=== PATIENT | female | born 2000 | race Two or more races ===

== ENCOUNTER 2021-02-10 15:14 | Outpatient (REF) | payer OTHER, SELFPAY ==
[2021-02-12 11:23] LABS: BV Int Neg Control Negative (Negative); BV Int Pos Control Positive (Positive)
[2021-02-12 12:05] LABS: CT PCR NOT DETECTED (Not Detect.); NG PCR NOT DETECTED (Not Detect.)
== END 2021-02-10 15:15 | disposition home or self-care (01) ==
LOC: HO.LAB 15:14
PROVIDERS: Visit Provider Nurse Practitioner Family
DX: N89.8 Other specified noninflammatory disorders of vagina (principal)
CPT/HCPCS: 87480; 87491; 87510; 87591; 87660

== ENCOUNTER 2021-02-12 09:27 | Outpatient (REF) | payer OTHER, SELFPAY | END 2021-02-12 09:28 | disposition home or self-care (01) | LOC: HO.LAB 09:27 | PROVIDERS: Visit Provider Nurse Practitioner Family | DX: R30.0 Dysuria (principal) | CPT/HCPCS: 87086 ==

== ENCOUNTER → 2021-02-13 13:25 | Outpatient (BNVA) | payer OTHER, SELFPAY | PROVIDERS: Visit Provider Nurse Practitioner Psychiatric/Mental Health | DX: F10.20 Alcohol dependence, uncomplicated (principal) | CPT/HCPCS: 80305 ==

== ENCOUNTER 2021-02-14 09:47 | Outpatient (REF) | payer OTHER, SELFPAY ==
[2021-02-14 11:22] LABS: MANUAL DIFF FLAG NO
[2021-02-14 11:43] LABS: Basophils Absolute Auto 0.1 X10*3/uL (0.0-0.2); Basophils Percent Auto 0.6 % (0-2); Eosinophils Absolute Auto 0.2 X10*3/uL (0.0-0.4); Eosinophils Percent Auto 2.8 % (0-4); Hematocrit 38.9 % (37-47); Hemoglobin 12.2 g/dl (12.0-16.0); Imm Gran Abs Auto 0.03 X10*3/uL (0.00-0.03); Imm Gran Pct Auto 0.4 % (0.0-0.4); Lymphocytes Percent Auto 23.6 % (20-40); Mean Corpuscular HGB Conc 31.4 g/dl (31.0-35.0); Mean Corpuscular Hemoglobin 27.4 pg (27.0-33.0); Mean Corpuscular Volume 87.2 fL (80-98); Monocytes Absolute Auto 0.9 X10*3/uL (0.1-1.2); Monocytes Percent Auto 10.8 % (2-11); Neutrophils Absolute Auto 5.2 X10*3/uL (2.0-8.3); Neutrophils Percent Auto 61.8 % (45-73); Platelet Count 356 X10*3/uL (160-400); Red Blood Count 4.46 X10*6/uL (4.20-5.50); Red Cell Distribution Width 12.9 % (11.0-16.0); White Blood Count 8.5 X10*3/uL (4.8-10.8)
[2021-02-14 12:26] LABS: Syphilis Screen Nonreactive (Nonreactive)
[2021-02-14 12:38] LABS: HBS Num1 0.49 mIU/mL (0-7.99); HBc Num1 0.12 S/CO (0.00-0.79); HIV AB/AG Nonreactive (Nonreactive); HIV Num 1 0.04 S/CO (0.00-0.99); Hepatitis A Antibody IgM 0.15 Index (0-0.79); Hepatitis B Core Antibody Nonreactive (Nonreactive); ~HepC Num1 0.43 S/CO (0.00-0.79); ~Hepatitis A Antibody IgM Nonreactive (Nonreactive); ~Hepatitis B Surface Antibody NONREACTIVE (Nonreactive); ~Hepatitis C Antibody Nonreactive (Nonreactive)
[2021-02-14 13:00] LABS: Hepatitis B Surface Antigen Negative (Negative)
[2021-02-14 13:14] LABS: Alanine Aminotransferase 46 U/L (0-31); Albumin Level 4.3 g/dL (3.5-5.0); Alkaline Phosphatase 84 U/L (39-117); Anion Gap 12 (12-20); Aspartate Amino Transferase 149 U/L (5-31); Bilirubin Total 0.2 mg/dL (0.0-1.0); Blood Urea Nitrogen 14 mg/dL (9-16); Carbon Dioxide 25 mmol/L (22-29); Chloride 107 mmol/L (96-108); Estimated Glomerular Filt Rate > 60; Glucose Random 89 mg/dL (60-115); Potassium 4.2 mmol/L (3.3-5.1); Sodium 140 mmol/L (135-145); Total Protein 7.2 g/dL (6.5-8.0)
[2021-02-15 07:31] LABS: LDL Cholesterol Direct 57 mg/dL (<100)
[2021-02-15 13:36] LABS: Herpes Simplex Type 2 IgG <0.90 index
== END 2021-02-14 09:48 | disposition home or self-care (01) ==
LOC: HO.HMGCLDS 09:47
PROVIDERS: PCP Internal Medicine; Visit Provider Internal Medicine
DX: Z00.01 Encounter for general adult medical examination with abnormal findings (principal); Z11.4 Encounter for screening for human immunodeficiency virus [HIV]; A64 Unspecified sexually transmitted disease; F19.20 Other psychoactive substance dependence, uncomplicated; R30.0 Dysuria
CPT/HCPCS: 36415; 80053; 83721; 85025; 86695; 86696; 86704; 86706; 86709; 86780; 86803; 87086; 87340; 87389

== ENCOUNTER 2021-02-19 10:25 | Outpatient (REF) | payer OTHER, SELFPAY ==
[2021-02-19 13:42] LABS: Alanine Aminotransferase 33 U/L (0-31); Albumin Level 4.1 g/dL (3.5-5.0); Alkaline Phosphatase 73 U/L (39-117); Aspartate Amino Transferase 25 U/L (5-31); Bilirubin Direct < 0.2 mg/dL (0.0-0.5); Bilirubin Total 0.2 mg/dL (0.0-1.0); Iron 82 mcg/dL (30-160); Percent Iron Saturation 28 % (15-50); Total Iron Binding Capacity 294 mcg/dL (228-428); Total Protein 6.6 g/dL (6.5-8.0); Unsaturated Iron Binding 212 ug/dL
[2021-02-19 14:03] LABS: Ferritin 29 ng/mL (10-122)
[2021-02-20 13:47] LABS: Anti Nuclear Antibody Screen NEGATIVE (NEGATIVE)
[2021-02-21 15:17] LABS: Mitochondrial Antibodies NEGATIVE (NEGATIVE)
[2021-02-27 10:56] LABS: Smooth Muscle Antibody <20 U (<20)
== END 2021-02-19 10:26 | disposition home or self-care (01) ==
LOC: HO.10HDL 10:25
PROVIDERS: Visit Provider Internal Medicine Gastroenterology
DX: R74.8 Abnormal levels of other serum enzymes (principal)
CPT/HCPCS: 36415; 80076; 82728; 83540; 86038; 86039; 86255; 86256

== ENCOUNTER 2021-02-20 14:51 | Outpatient (REF) | payer OTHER, SELFPAY ==
--- NOTE | ~2021-02-20 | US_ITS ---
EXAMINATION: US ABDOMEN COMPLETE CLINICAL INFORMATION: Elevated liver enzymes. COMPARISON: None TECHNIQUE: Real-time imaging of the abdominal viscera. FINDINGS: PANCREAS: Normal. ABDOMINAL AORTA: The proximal, mid, and distal segments are normal in caliber. INFERIOR VENA CAVA: Visualized portions are normal. LIVER: The liver is normal in size. The liver contour is normal. Parenchymal echogenicity is normal. No focal hepatic lesion. There is no intrahepatic biliary duct dilatation seen. GALLBLADDER: There is echogenic debris seen throughout the gallbladder when patient in decubitus view. There are no echogenic stones, wall thickening or pericholecystic fluid collection. COMMON BILE DUCT: Normal in caliber measuring 0.17 cm in diameter. RIGHT KIDNEY: Normal. No hydronephrosis. No renal calculi or focal parenchymal lesions. The kidney measures 10.8 cm in maximum dimension. LEFT KIDNEY: There is is echogenic stone in the upper pole measuring 0.2 x 0.3 x 0.2 cm. No additional echogenic stone seen. There is no caliectasis or hydronephrosis. No focal parenchymal lesions. The kidney measures 10.3 cm in maximum dimension. SPLEEN: Normal. The spleen measures 9.4 cm in maximum dimension. FREE FLUID: None. US/US abdomen complete IMPRESSION: Echogenic debris in the gallbladder but no echogenic stones or wall thickening seen. Nonobstructive echogenic stone upper pole left kidney. Rest of the abdominal ultrasound is unremarkable.
== END 2021-02-20 14:52 | disposition home or self-care (01) ==
LOC: HO.HMGCX 14:51
PROVIDERS: Visit Provider Internal Medicine Gastroenterology
DX: R74.8 Abnormal levels of other serum enzymes (principal); F10.20 Alcohol dependence, uncomplicated
CPT/HCPCS: 76700; 80305

== ENCOUNTER 2021-03-10 12:33 | Outpatient (REF) | payer OTHER, SELFPAY ==
[2021-03-10 14:47] LABS: Influenza A PCR NEGATIVE (Negative); Influenza B PCR NEGATIVE (Negative); Resp Syncy Virus RNA Qual PCR NEGATIVE (Negative); SARS COV2 PCR INHOUSE NEGATIVE (Negative)
== END 2021-03-10 12:34 | disposition home or self-care (01) ==
LOC: HO.LAB 12:33
PROVIDERS: Visit Provider Nurse Practitioner Family
DX: Z20.822 Contact with and (suspected) exposure to COVID-19 (principal)
CPT/HCPCS: 0241U; 36415; 87071

== ENCOUNTER 2021-03-20 08:00 | Outpatient (REF) | payer OTHER, SELFPAY ==
[2021-03-21 08:50] LABS: BV Int Neg Control Negative (Negative); BV Int Pos Control Positive (Positive)
[2021-03-21 09:03] LABS: CT PCR NOT DETECTED (Not Detect.); NG PCR NOT DETECTED (Not Detect.)
== END 2021-03-20 08:01 | disposition home or self-care (01) ==
LOC: HO.LAB 08:00
PROVIDERS: PCP Psychiatry & Neurology Neurology; Visit Provider Advanced Practice Midwife
DX: Z01.411 Encounter for gynecological examination (general) (routine) with abnormal findings (principal); N89.8 Other specified noninflammatory disorders of vagina; Z20.2 Contact with and (suspected) exposure to infections with a predominantly sexual mode of transmission
CPT/HCPCS: 87480; 87491; 87510; 87591; 87660; 88142

== ENCOUNTER 2021-05-26 10:41 | Outpatient (REF) | payer OTHER, SELFPAY ==
[2021-05-26 11:48] LABS: Alanine Aminotransferase 11 U/L (0-31); Albumin Level 4.3 g/dL (3.5-5.0); Alkaline Phosphatase 75 U/L (39-117); Aspartate Amino Transferase 13 U/L (5-31); Bilirubin Direct 0.2 mg/dL (0.0-0.5); Bilirubin Total 0.5 mg/dL (0.0-1.0); Total Protein 7.1 g/dL (6.5-8.0)
== END 2021-05-26 10:42 | disposition home or self-care (01) ==
LOC: HO.LAB 10:41
PROVIDERS: PCP Internal Medicine; Visit Provider Internal Medicine Gastroenterology
DX: R74.8 Abnormal levels of other serum enzymes (principal)
CPT/HCPCS: 36415; 80076

== ENCOUNTER 2021-06-08 13:46 | Emergency (ER) | payer OTHER, SELFPAY ==
--- NOTE | ~2021-06-08 | XR_ITS ---
EXAMINATION: XR FINGER, RIGHT CLINICAL INFORMATION: Thumb injury with knife. COMPARISON: None TECHNIQUE: 3 views of the right thumb.. FINDINGS: There is no visible acute fracture, dislocation subluxation. No soft tissue abrasion or radiopaque foreign body seen. There is a soft tissue bandage surrounding the distal thumb. XR/XR finger RT min 2V IMPRESSION: No underlying fracture or radiopaque foreign body. No soft tissue abrasion seen. There is a soft tissue bandage surrounding the distal thumb.
[2021-06-08 13:47] VITALS: BP 136/91; PULSE 79; RESP 17; TEMP 36.7; O2SAT 100; BMI 22.3
--- NOTE | 2021-06-08 14:38 | ED.WOUNDLAC ---
HPI - Wound/Laceration General Chief Complaint: Wound/Laceration Stated Complaint: rt thumb laceration Time Seen by Provider: 06/08/21 14:16 Source: patient Mode of arrival: ambulatory Limitations: no limitations History of Present Illness HPI narrative: 21 y/o female presents to the ER with a laceration to the middle of her right thumb that she sustained with a blade of a bank manager at 11:30am today. She reports immediate pain and a lot of bleeding when the incident happened. She went to [facility] ER for evaluation - a dressing was applied, she was given ibuprofen for pain. The wait in the ER there was several hours so she left and came to [facility] [place]. She arrives with the bandage in place, no active bleeding. She reports she is able to bend it slightly but has pain with any movement. Onset (ago): hour(s) (3) Place: home Patient tetanus UTD: No Context: accidental Associated symptoms: pain and loss of feeling/numbness Treatments prior to arrival: bandage and NSAIDS Related Data Previous Rx's Medication Instructions Recorded naltrexone 50 mg tablet 50 mg PO DAILY #30 tab 02/13/21 prazosin 1 mg capsule 1 mg PO BEDTIME #30 cap 02/13/21 azithromycin 500 mg tablet 500 mg PO DAILY 5 Days #5 tab 03/10/21 dexamethasone 6 mg tablet 6 mg PO DAILY 3 Days #3 tab 03/10/21 (Decadron) metronidazole 0.75 % vaginal gel 1 appful VAGINAL BEDTIME 5 Days 03/21/21 (Metrogel Vaginal) #70 g Allergies Allergy/AdvReac Type Severity Reaction Status Date / Time amoxicillin Allergy Unknown hives Verified 06/08/21 13:47 Review of Systems Review of Systems: Constitutional: No Fever, No Chills Gastrointestinal: No Nausea, No Vomiting Genitourinary: No Dysuria, No Urinary Frequency, No Hematuria Musculoskeletal: + joint pain, No Myalgias Skin: + Skin Lesions, No rash Neuro: No Weakness, + Numbness Psych: + Anxiety/Panic, No Depression Heme/Lymph: No Bruising PMFSH Past Medical History Medical History Alcohol use disorder Dysuria Vaginal discharge Family History Family History Paternal Grandmother Breast cancer Paternal Aunt Breast cancer, Onset Age: 40 Social History Social History Alcohol intake: former Cigarettes Per Day: 2 Advance Directives: No Advance Directives Information Provided: Yes Patient : No Gender identity: Female Physical Exam Vital Signs: Vital Signs: Last Vital Signs Temp 98.0 F 06/08/21 13:47 Pulse 79 06/08/21 13:47 Resp 17 06/08/21 13:47 BP 136/91 H 06/08/21 13:47 Pulse Ox 100 06/08/21 13:47 Body Mass Index 22.3 Appearance: Alert. Oriented X3. No acute distress. HEENT: normal inspection CVS: Normal heart rate and rhythm. Pulses normal. Respiratory: No respiratory distress. Skin: Skin warm and dry. Normal skin color. Normal skin turgor. No rashes. Extremities: right thumb with deep laceration to the palmar aspect just below the DIP. no active bleeding. laceration is slightly irregular. able to full extend and bend to 45 degrees. cap refill <3 sec. +numbness to the tip Neuro: Oriented X 3. No motor deficit. No sensory deficit. Course Course Course Narrative: 21 y/o female presenting to the ER with right thumb lac on bank manager blade. Tdap needed. XR pending. Will require repair. Reevaluation(s) Reevaluation #1: Wound closed with good effect. XR normal. Wound care discussed. Stable for d/c home with plan to return in 7-10 days for removal. Procedures Laceration Laceration 1: Site: hand Side (If applicable): right Size (cm): 2.5 Description: irregular Depth: simple, single layer Local Anesthetic: lidocaine 2% Pre-repair: wound explored, irrigated extensively and deep structures intact Skin layer closed with: nylon Size (cm): 4-0 Number of sutures: 6 Technique: simple, interrupted Nerve Block Nerve Block 1: Time out performed: Yes Local Anesthetic: lidocaine 2% Side: right Nerve Blocks: digital Procedure Successful: Yes Patient Tolerated Procedure: well Complications: none Critical Care Time Critical Care Time Critical Care Time: No Discharge Plan Discharge Clinical Impression: Laceration Patient Disposition: Home, Self-Care Instructions: Finger Laceration (ED) Additional Instructions: Your x-ray today was normal. You will need your stitches out in 7-10 days. See you doctor for this or come back to the ER and we will remove them. Do not get wet for 24 hours, after that you can briefly wash with soap and water then pat dry. Use bacitracin 2x per day. Keep wound clean and covered. Do not submerge in water, no swimming. If you develop signs of infection including increased pain, swelling, redness or drainage of pus come back to the ER for further evaluation. Prescriptions: No Action metronidazole [Metrogel Vaginal] 0.75 % gel 1 appful vaginal BEDTIME 5 Days Qty: 70 RF: 0 ceftriaxone 500 mg recon soln 500 mg IM ONCE Qty: 1 RF: 0 azithromycin 500 mg tablet 500 mg PO DAILY 5 Days Qty: 5 RF: 0 dexamethasone [Decadron] 6 mg tablet 6 mg PO DAILY 3 Days Qty: 3 RF: 0 prazosin 1 mg capsule 1 mg PO BEDTIME Qty: 30 RF: 0 naltrexone 50 mg tablet 50 mg PO DAILY Qty: 30 RF: 0 Stand Alone Forms: Work/School Release
[2021-06-08] MEDS: Diphth,Pertus(ACell),Tet Adult 0.5 ML SYRINGE IM (14:51)
[2021-06-08] MEDS: Lidocaine HCl 2 % MPF 5 ML VIAL INFILTRATI (14:53)
== END 2021-06-08 16:07 | disposition home or self-care (01) ==
PROVIDERS: Emergency Provider Emergency Medicine; PCP Internal Medicine
DX: S61.411A Laceration without foreign body of right hand, initial encounter (principal); Y28.9XXA Contact with unspecified sharp object, undetermined intent, initial encounter; Y93.9 Activity, unspecified; Y92.9 Unspecified place or not applicable; Y99.9 Unspecified external cause status
CPT/HCPCS: 12001; 73140; 90471; 90715; 96372; 99283; 99284

== ENCOUNTER 2021-06-30 08:52 | Outpatient (REF) | payer OTHER, SELFPAY ==
[2021-07-01 10:13] LABS: BV Int Neg Control Negative (Negative); BV Int Pos Control Positive (Positive)
== END 2021-06-30 08:53 | disposition home or self-care (01) ==
LOC: HO.LAB 08:52
PROVIDERS: PCP Internal Medicine; Visit Provider Advanced Practice Midwife
DX: Z30.011 Encounter for initial prescription of contraceptive pills (principal); R87.615 Unsatisfactory cytologic smear of cervix; N89.8 Other specified noninflammatory disorders of vagina
CPT/HCPCS: 87480; 87510; 87660; 88142

== ENCOUNTER → 2021-07-31 13:44 | Outpatient (BNVA) | payer OTHER, SELFPAY | PROVIDERS: PCP Internal Medicine; Referring Provider Internal Medicine; Visit Provider Surgery ==

== ENCOUNTER 2022-04-06 11:48 | Outpatient (REF) | payer OTHER, SELFPAY ==
[2022-04-06 14:01] LABS: Hematocrit 38.6 % (37.0-47.0); Hemoglobin 12.1 g/dl (12.0-16.0); Mean Corpuscular HGB Conc 31.3 g/dl (31.0-35.0); Mean Corpuscular Volume 86.2 fL (80.0-98.0); Platelet Count 340 X10*3/uL (160-400); Red Blood Count 4.48 X10*6/uL (4.20-5.50); Red Cell Distribution Width 13.2 % (11.0-16.0); White Blood Count 11.3 X10*3/uL (4.8-10.8)
[2022-04-06 14:18] LABS: Alanine Aminotransferase 9 U/L (0-31); Alkaline Phosphatase 61 U/L (39-117); Aspartate Amino Transferase 10 U/L (5-31); Bilirubin Direct < 0.2 mg/dL (0.0-0.5); Bilirubin Total < 0.2 mg/dL (0.0-1.0); Total Protein 6.6 g/dL (6.5-8.0)
[2022-04-06 14:30] LABS: T4 Thyroxine 5.3 ug/dL (4.5-12.0); Thyroid Stimulating Hormone 0.76 uIU/mL (0.32-4.0)
[2022-04-09 21:22] LABS: Transglutaminase IgA <1.0 U/mL
== END 2022-04-06 11:49 | disposition home or self-care (01) ==
LOC: HO.10HDL 11:48
PROVIDERS: Visit Provider Internal Medicine Gastroenterology
DX: R10.84 Generalized abdominal pain (principal)
CPT/HCPCS: 36415; 80076; 84436; 84443; 85027; 86364

== ENCOUNTER 2022-06-17 09:12 | Outpatient (REF) | payer OTHER, SELFPAY ==
[2022-06-17 10:34] LABS: MANUAL DIFF FLAG NO
[2022-06-17 10:50] LABS: Basophils Percent Auto 0.4 % (0-2); Eosinophils Absolute Auto 0.2 X10*3/uL (0.0-0.4); Eosinophils Percent Auto 2.1 % (0-4); Imm Gran Abs Auto 0.03 X10*3/uL (0.00-0.03); Imm Gran Pct Auto 0.4 % (0.0-0.4); Lymphocytes Absolute Auto 1.9 X10*3/uL (1.2-4.9); Lymphocytes Percent Auto 22.4 % (20-40); Mean Corpuscular HGB Conc 31.6 g/dl (31.0-35.0); Mean Corpuscular Hemoglobin 27.1 pg (27.0-33.0); Mean Platelet Volume 11.2 fL (9.4-12.3); Monocytes Absolute Auto 0.9 X10*3/uL (0.1-1.2); Monocytes Percent Auto 10.8 % (2-11); Neutrophils Absolute Auto 5.4 x10*3/uL (2.0-8.3); Neutrophils Percent Auto 63.9 % (45-73); Platelet Count 374 X10*3/uL (160-400); Red Blood Count 4.42 X10*6/uL (4.20-5.50); Red Cell Distribution Width 13.9 % (11.0-16.0); White Blood Count 8.5 X10*3/uL (4.8-10.8)
[2022-06-17 11:30] LABS: Alanine Aminotransferase 9 U/L (0-31); Albumin Level 4.2 g/dL (3.5-5.0); Alkaline Phosphatase 68 U/L (39-117); Aspartate Amino Transferase 11 U/L (5-31); Bilirubin Direct < 0.2 mg/dL (0.0-0.5); Bilirubin Total 0.3 mg/dL (0.0-1.0); Lipase 19 U/L (8-78); Total Protein 6.8 g/dL (6.5-8.0)
== END 2022-06-17 09:13 | disposition home or self-care (01) ==
LOC: HO.10HDL 09:12
PROVIDERS: Visit Provider Internal Medicine Gastroenterology
DX: R10.13 Epigastric pain (principal)
CPT/HCPCS: 36415; 80076; 83690; 84443; 85025

== ENCOUNTER 2022-06-23 11:01 | Day surgery (SDC) | payer OTHER, SELFPAY ==
--- NOTE | 2022-06-22 10:43 | HO.ANESPROP2 ---
Documented by User: Latia Baum NP 06/22/22 10:52 HPI - Anesthesia Eval Consult details Narrative: 22yo F for Colonoscopy Hx polysub PMFSH Active Problems Active Problems: All Active Problems (Updated 06/22/22 @ 10:08 by Alena Cruz RN) Encounter for general adult medical examination with abnormal findings (Acute) STD (female) (Acute) Drug addiction (Acute) Alcohol use disorder, moderate, dependence (Acute) LFT elevation (Acute) Pharyngitis (Acute) Cough (Acute) Encounter for annual routine gynecological examination (Acute) Potential exposure to STD (Acute) Vaginal discharge (Acute) Visit for wound check (Acute) Hospital discharge follow-up (Acute) Laceration of thumb, right (Acute) Dermoid cyst (Acute) Visit for suture removal (Acute) Hematoma (Acute) Past Medical History Medical History Alcohol use disorder Anxiety Dysuria Vaginal discharge Family History Family History Paternal Grandmother Breast cancer Paternal Aunt Breast cancer, Onset Age: 40 Other Mental health disorder Substance use disorder Social History Social History Housing: House Alcohol intake: former Patient Tobacco Use Status: Former Tobacco user Quit Date: 2020 Cigarettes Per Day: 2 Years Smoked: 1 year Are you DNR?: No Advance Directives: No Advance Directives Information Provided: Yes Nutrition Risks: No Nutritional Risk Current occupational status: employed Gender identity: Female Meds Allergies Allergy/AdvReac Type Severity Reaction Status Date / Time amoxicillin Allergy Unknown hives Verified 07/31/21 13:57 Home Medications Medication Instructions Recorded Confirmed Last Taken Type omeprazole 20 mg capsule,delayed 1 cap PO QAM 06/22/22 06/22/22 Unknown History release Exam Exam Date and Time: June 22, 2022 1043 Assessment and Plan Assessment Anesthesia Assessment: Chart Reviewed Documented by User: Jane Preston MD 06/23/22 12:23 [facility] Past Medical History Medical History Alcohol use disorder Anxiety Dysuria Vaginal discharge Family History Family History Paternal Grandmother Breast cancer Paternal Aunt Breast cancer, Onset Age: 40 Other Mental health disorder Substance use disorder Surgical History History of Problems with Anesthesia: No Social History Social History Housing: House Alcohol intake: former Patient Tobacco Use Status: Former Tobacco user Quit Date: 2020 Cigarettes Per Day: 2 Years Smoked: 1 year Are you DNR?: No Advance Directives: No Advance Directives Information Provided: Yes Nutrition Risks: No Nutritional Risk Current occupational status: employed Gender identity: Female Meds Allergies Allergy/AdvReac Type Severity Reaction Status Date / Time amoxicillin Allergy Unknown hives Verified 07/31/21 13:57 Home Medications Medication Instructions Recorded Confirmed Last Taken Type omeprazole 20 mg capsule,delayed 1 cap PO QAM 06/22/22 06/22/22 Unknown History release Exam Airway Mallampati Class: I TM Dist: >3cm Neck ROM: Full Loose/Missing/Broken Teeth: No Heart: RRR Lungs: CTA 5 Assessment and Plan Assessment Anesthesia Assessment: Anesthesia Plan Discussed Final Anesthetic Review History of Problems with Anesthesia: No NPO: Yes ASA Class: II Final Preanesthetic Review: Meds/Allgs Chart Reviewed, Consent Obtained/Reviewed and Anes Risks/Benef Reviewed Patient Risk: Low Procedure Risk: Intermediate Anesthetic Plan Anesthetic Plan: MAC: Disposition: Standard PACU
[2022-06-23 10:17] VITALS: BMI 20.2
[2022-06-23 11:06] VITALS: BP 109/73; PULSE 76; RESP 18; TEMP 36.1; O2SAT 99
[2022-06-23 11:23] LABS: UPreg QC Valid YES
[2022-06-23 11:24] LABS: Urine Pregnancy NEGATIVE (NEGATIVE)
[2022-06-23] MEDS: Lactated Ringers 1,000 ML 100 ML IVCONT (11:25)
[2022-06-23 11:36] LABS: Amphetamine Screen Urine Not Detected (Not Detect); Barbiturates, Urine Not Detected (Not Detect); Benzodiazepines Screen Urine Not Detected (Not Detect); Cannabinoid Screen Urine POSITIVE (Not Detect); Cocaine Screen Urine Not Detected (Not Detect); Fentanyl, urine Not Detected (Not Detect); Opiate Screen Urine Not Detected (Not Detect); Phencyclidine Screen Urine Not Detected (Not Detect)
--- NOTE | 2022-06-23 12:03 | MHC.SHP ---
Pre-Procedural Eval Section A Date of Service: 06/23/22 The patient is an INPATIENT: No Changes since office visit: No Cold of Flu in the past 2 weeks, No New Medical Problems, No Changes in Medication and No Patient answered all questions The History & Physical has been completed within 30 days and I have reviewed it.: Yes Section B Chief Complaint: Epigastric pain,abnormal weight loss Allergies: Allergies Allergy/AdvReac Type Severity Reaction Status Date / Time amoxicillin Allergy Unknown hives Verified 07/31/21 13:57 Plan I have reviewed the history and physical and performed a pertinent physical examination on my patient. No changes have occurred unless specified.
--- NOTE | 2022-06-23 12:52 | P.BOP_ITS ---
Brief Operative Note Date of Service: 06/23/22 Pre-op diagnosis: epigastric pain, wt loss, change in bowels Post-op diagnosis: same Procedure: egd colon Surgeon: James Hager Anesthesia: MAC Was an Classroom Instructor used for this Procedure?: No Estimated blood loss (mL): 5 Pathology: other Condition: stable Disposition: PACU
[2022-06-23 12:55] VITALS: BP 100/56; PULSE 86; RESP 18; TEMP 36.1; O2SAT 100
--- NOTE | 2022-06-23 23:33 | OP_ITS ---
SURGEON: James Hager MD INDICATIONS: Epigastric pain, weight loss, and change in bowel habits. PREOPERATIVE DIAGNOSIS: POSTOPERATIVE DIAGNOSIS: PROCEDURE PERFORMED: ESTIMATED BLOOD LOSS: COMPLICATIONS: ANESTHESIA: ASSISTANTS: SPECIMENS: PROCEDURES PERFORMED: 1. Upper endoscopy with biopsy. 2. Colonoscopy to the terminal ileum with biopsy. MEDICATIONS: Monitored anesthesia care. DESCRIPTION OF PROCEDURE: The procedure was performed on 06/23/2022. A history and physical was performed. The risks and benefits of the procedure were explained to the patient. Informed consent was obtained. The patient was placed in the left lateral decubitus position. The Olympus video gastroscope was introduced into the esophagus, stomach, and duodenum. Examination was performed and the scope was removed. she was repositioned for colonoscopy. Digital rectal exam was performed and was found to be normal. The Olympus pediatric video colonoscope was introduced into the rectum and advanced to the cecum without difficulty. The cecum was identified by transillumination, palpation, and identification of ileocecal valve. Examination was performed. The scope was removed. She tolerated the procedures well and was transferred to recovery area in stable condition. FINDINGS: UPPER ENDOSCOPY: 1. Esophagus. The esophagus was normal. Biopsies were obtained from the esophagogastric junction. 2. Stomach: The stomach was normal. Biopsies were obtained from the antrum. 3. Duodenum: The bulb and second portion were normal. Biopsies were obtained from the second portion. COLONOSCOPY: The terminal ileum was normal. This was biopsied. The visualized colonic mucosa was normal without evidence of colitis or Crohn disease. Sigmoid biopsies were obtained. There was a large amount of liquid stool coating the mucosa, which limited the sensitivity examination, but was washed and suctioned as best possible. Retroflexed examination showed some small internal hemorrhoids. IMPRESSION: 1. Normal upper endoscopy. 2. Normal colonoscopy. RECOMMENDATION: Follow up the biopsy results. Screening colonoscopy at age 45. MD URIAH Mccarthy/JOHNSON / [id number] MTDD
== END 2022-06-23 13:43 | disposition home or self-care (01) ==
PROVIDERS: Nurse Practitioner; PCP Internal Medicine; Visit Provider Internal Medicine Gastroenterology
PROC: (CPT 45380; principal; 2022-06-23 10:40)
DX: R19.4 Change in bowel habit (principal); R10.13 Epigastric pain; R63.4 Abnormal weight loss; K64.8 Other hemorrhoids; F41.1 Generalized anxiety disorder; F19.11 Other psychoactive substance abuse, in remission; Z79.899 Other long term (current) drug therapy; Z88.8 Allergy status to other drugs, medicaments and biological substances; Z87.891 Personal history of nicotine dependence
CPT/HCPCS: 45380; 43239; 80307; 81025; 88305; 88342; J3010

== ENCOUNTER 2022-12-22 09:30 | Outpatient (REF) | payer OTHER, SELFPAY ==
--- NOTE | ~2022-12-22 | US_ITS ---
EXAMINATION: US RETROPERITONEAL LIMITED (RENAL ONLY) CLINICAL INFORMATION: Flank pain. COMPARISON: Ultrasound abdomen complete 02/20/2021. TECHNIQUE: Real-time imaging of the kidneys. FINDINGS: RIGHT KIDNEY: 10.4 x 4.6 x 5.4 cm (SAG x AP x TRV). The kidney is normal in size, contour, and echogenicity. Renal cortical thickness is normal. No calculi or focal parenchymal lesions. No hydronephrosis. LEFT KIDNEY: 10.1 x 5.1 x 4.3 cm (SAG x AP x TRV). The kidney is normal in size, contour, and echogenicity. Renal cortical thickness is normal. No calculi or focal parenchymal lesions. No hydronephrosis. US/US retroperitoneal limited IMPRESSION: No significant renal abnormality.
== END 2022-12-22 09:31 | disposition home or self-care (01) ==
LOC: HO.US 09:30
PROVIDERS: Visit Provider Nurse Practitioner Family
DX: R10.9 Unspecified abdominal pain (principal); R35.0 Frequency of micturition; R39.89 Other symptoms and signs involving the genitourinary system
CPT/HCPCS: 76775

== ENCOUNTER 2022-12-23 11:02 | Outpatient (REF) | payer OTHER, SELFPAY ==
[2022-12-23 13:13] LABS: CT PCR NOT DETECTED (Not Detect.); NG PCR NOT DETECTED (Not Detect.)
[2022-12-24 09:15] LABS: BV Int Neg Control Negative (Negative); BV Int Pos Control Positive (Positive)
== END 2022-12-23 11:03 | disposition home or self-care (01) ==
LOC: HO.LNP 11:02
PROVIDERS: Visit Provider Advanced Practice Midwife
DX: Z20.2 Contact with and (suspected) exposure to infections with a predominantly sexual mode of transmission (principal)
CPT/HCPCS: 0353U; 87480; 87510; 87660

== ENCOUNTER 2022-12-23 12:17 | Outpatient (REF) | payer OTHER, SELFPAY ==
--- NOTE | ~2022-12-23 | US_ITS ---
EXAMINATION: US PELVIS LIMITED (BLADDER) CLINICAL INFORMATION: Sensation of pressure in bladder area. COMPARISON: Ultrasound retroperitoneal limited (renal only) 12/22/2022. Ultrasound abdomen complete 02/20/2021. TECHNIQUE: Real-time imaging of the bladder. FINDINGS: BLADDER: Well distended and normal. Bilateral ureteral jets are demonstrated. Prevoid bladder volume is 561 mL. Postvoid bladder volume is 87.9 mL. US/US bladder IMPRESSION: Moderate postvoid residual bladder volume without any echogenic stones or bladder wall thickening. Normal bilateral ureteral jets
== END 2022-12-23 12:18 | disposition home or self-care (01) ==
LOC: HO.US 12:17
PROVIDERS: PCP Internal Medicine; Visit Provider Internal Medicine Medical Oncology
DX: R39.89 Other symptoms and signs involving the genitourinary system (principal); R39.15 Urgency of urination; R35.0 Frequency of micturition
CPT/HCPCS: 76857

== ENCOUNTER → 2022-12-25 15:42 | Outpatient (BNVA) | payer OTHER, SELFPAY | PROVIDERS: PCP Internal Medicine; Visit Provider Urology | DX: Z13.89 Encounter for screening for other disorder (principal) ==

== ENCOUNTER 2024-01-04 10:04 | Emergency (ER) | payer OTHER, SELFPAY ==
--- NOTE | ~2024-01-04 | CT_ITS ---
EXAMINATION: CT SOFT TISSUE NECK WITHOUT CONTRAST CLINICAL INFORMATION: Question barrett stuck in consultation COMPARISON: None available. TECHNIQUE: Helical imaging was performed in the axial plane with generation of coronal and sagittal reformatted images. This CT examination was performed using dose optimization techniques as appropriate, variously including the following: *Automated exposure control *Adjustment of mA and/or kV according to patient size (this includes techniques or standardized protocols for targeted exams where dose is matched to indication/reason for exam; i.e. extremities or head) *Use of iterative reconstruction technique DLP: 304 mGy-cm FINDINGS: 1 mm high attenuation density in the soft tissues of the left lower oropharynx/left lateral tonsil region. Question calcification versus possible foreign body. Axial image 149 series 3. No surrounding fluid or air collection is seen to suggest abscess. The naso or hypopharynx and larynx are otherwise normal. The epiglottis is normal. The larynx is normal. The thyroid gland is normal. Visualized intracranial structures are normal. The orbits are normal. Salivary glands are normal. Small cervical lymphadenopathy. No enlarged lymph nodes. Visualized superior mediastinum is normal. Lung apices are clear. Bony structures are normal. CT/CT soft tissue neck wo IV con IMPRESSION: 1 mm radiopaque density in the left side of the lower oropharynx/tonsil region questionable for calcification versus foreign body. No surrounding abnormal air or fluid collection seen to suggest abscess.
[2024-01-04 10:39] VITALS: BP 121/73; PULSE 72; RESP 18; TEMP 36.6; O2SAT 99; BMI 19.8
[2024-01-04 12:05] LABS: HCG Quantitative < 2 mIU/mL
--- NOTE | 2024-01-04 13:05 | ED_ITS ---
HPI - Dental/Oral General Chief complaint: Dental/Oral Stated complaint: Fishbone stuck in tonsil? Time Seen by Provider: 01/04/24 12:57 Source: patient Mode of arrival: ambulatory Limitations: no limitations History of Present Illness HPI Narrative: 23 y/o female presents for sore throat secondary to a fish bone stuck in throat since Wednesday. She reports that she had pizza with anchovies on Wednesday and after eating, she had a sharp pain localized to the right side with swallowing and had foreign body sensation. Yesterday, she tried warm saline rinse and listerine with no relief. Palpated tonsils with finger yesterday and reported an appearance of a white head on her right tonsil. Today, pain has worsened and feels swollen. Has history of tonsilitis and pheboliths in 2019. Able to speak in full sentences, managing oral secretions. Denies fevers, cold symptoms. No dental trauma or tooth pain. Onset (ago): day(s) Duration: constant Severity: moderate Relieving factors: nothing Exacerbating factors: swallowing Related Data Home Medications ?Medication ?Instructions ?Recorded ?Confirmed omeprazole 20 mg capsule,delayed 1 cap PO QAM 06/22/22 01/27/23 release Previous Rx's ?Medication ?Instructions ?Recorded quetiapine 25 mg tablet (Seroquel) 25 mg PO BEDTIME #90 tabs 03/29/23 Allergies Allergy/AdvReac Type Severity Reaction Status Date / Time amoxicillin Allergy Unknown hives Verified 01/04/24 10:42 Review of Systems Review of Systems: Yes all other systems are reviewed and are negative PMFSH Past Medical History Medical History Alcohol use disorder Anxiety Dysuria Vaginal discharge Family History Family History Paternal Grandmother Breast cancer Paternal Aunt Breast cancer, Onset Age: 40 Other Mental health disorder Substance use disorder Social History Social History Housing: House Alcohol intake: former Patient Tobacco Use Status: Former Tobacco user Quit Date: 2020 Cigarettes Per Day: 2 Years Smoked: 1 year e-Cigarette/Vaping Use: Former Use Advance Directives: No Advance Directives Information Provided: Yes service: No Current occupational status: employed Gender identity: Female Cognitive needs: No Hearing needs: No Vision needs: No Physical Exam Vital Signs: Vital Signs: Last Vital Signs Temp 98 F 01/04/24 10:39 Pulse 72 01/04/24 10:39 Resp 18 01/04/24 10:39 BP 121/73 01/04/24 10:39 Pulse Ox 99 01/04/24 10:39 O2 Del Method Room Air 01/04/24 10:39 BMI result Body Mass Index 19.8 Appearance: Alert. Oriented X3. No acute distress. . ENT: Pharynx normal. No tonsillar swelling or exudate. Small, white speck on right tonsil. Neck: Normal inspection. Neck supple. CVS: Normal heart rate and rhythm. Pulses normal. Respiratory: No respiratory distress. Breath sounds normal. Abdomen: Soft and nontender. Skin: Skin warm and dry. Normal skin color. Normal skin turgor. No rashes. Extremities: No lower extremity edema. No joint swelling. Neuro/psych: Oriented X 3. Medications Administered Discontinued Medications Generic Name Dose Route Start Last Admin Trade Name Freq PRN Reason Stop Dose Admin Lidocaine HCl 15 ml 01/04/24 13:16 01/04/24 13:37 Lidocaine Hcl Viscous 2 % 15 Ml Solution MUCOUS MEM 01/04/24 13:17 15 ml ONCE ONE Administration Medical Decision Making Medical Decision Making MDM Narrative: 23 y/o female presents for sore throat secondary to a fish bone stuck in throat since Wednesday. She reports that she had pizza with anchovies on Wednesday and after eating, she had a sharp pain localized to the right side with swallowing and had foreign body sensation. On exam, there is no noticeable erythema or tonsilar swelling, exudates. On closer examination, there is a small white speck on the right tonsil. CT scan reveals 1mm radiopaque density in left oropharynx. History of tonsillitis and tonsil stones. Administered viscous lidocaine and attempted to express right tonsil. Suction of right tonsil unable to fully express. Considering patient's history, presentation is most likely due to starting of tonsiliths. Comfortable to discharge home and instructed patient to monitor symptoms and attempt to visualize tonsils but to avoid direct manipulation as this might cause more irritation. Differential Diagnosis Differential Diagnoses: The differential diagnosis associated with the presentation includes tonsilith, foreign body, tonsilitis, pharyngitis, peritonsillar abscess Lab Data [facility] Lab Attestation statement: I reviewed the patient's lab results. Labs: Lab Results 01/04/24 Range/Units 11:36 Beta HCG, Quant < 2 mIU/mL Independent Interpretation I performed an independent interpretation of an: CT Scan Interpretation: 1mm right sided stone in the tonsil, nothing in the left Radiology Impression Discussion of test interpretation with radiology: I have reviewed the radiologist's reading. Radiologist Impression: EXAMINATION: CT SOFT TISSUE NECK WITHOUT CONTRAST CLINICAL INFORMATION: Question [email or web address] stuck in consultation COMPARISON: None available. TECHNIQUE: Helical imaging was performed in the axial plane with generation of coronal and sagittal reformatted images. This CT examination was performed using dose optimization techniques as appropriate, variously including the following: *Automated exposure control *Adjustment of mA and/or kV according to patient size (this includes techniques or standardized protocols for targeted exams where dose is matched to indication/reason for exam; i.e. extremities or head) *Use of iterative reconstruction technique DLP: 304 mGy-cm FINDINGS: 1 mm high attenuation density in the soft tissues of the left lower oropharynx/left lateral tonsil region. Question calcification versus possible foreign body. Axial image 149 series 3. No surrounding fluid or air collection is seen to suggest abscess. The naso or hypopharynx and larynx are otherwise normal. The epiglottis is normal. The larynx is normal. The thyroid gland is normal. Visualized intracranial structures are normal. The orbits are normal. Salivary glands are normal. Small cervical lymphadenopathy. No enlarged lymph nodes. Visualized superior mediastinum is normal. Lung apices are clear. Bony structures are normal. CT/CT soft tissue neck wo IV con IMPRESSION: 1 mm radiopaque density in the left side of the lower oropharynx/tonsil region questionable for calcification versus foreign body. No surrounding abnormal air or fluid collection seen to suggest abscess. External Record Review External record reviewed: Prior outpatient labs Prescription Management I considered prescription management with: Antibiotic Critical Care Time Critical Care Time Critical Care Time: No Discharge Plan Discharge Clinical Impression: Tonsil stone Patient Disposition: Home, Self-Care Instructions: Tonsillitis (ED) Additional Instructions: Your CT scan did not show any bone stuck in your tonsils. You have tonsil stones in your tonsils. These are benign and do not pose any health risk Gargle with warm salt water You can use over the counter Chloraseptic spray as needed for sore throat If you develop new or worsening symptoms call 911 or come back to the ER for further evaluation. Prescriptions: No Action quetiapine [Seroquel] 25 mg tablet 25 mg PO BEDTIME Qty: 90 0RF omeprazole 20 mg capsule,delayed release(DR/EC) 1 cap PO QAM Print Language: Nam[place]ian
[2024-01-04] MEDS: Lidocaine HCl Viscous 2 % 15 ML SOLUTION MUCOUS MEM (13:37)
[2024-01-04 14:34] VITALS: BP 121/73; PULSE 72; RESP 18; TEMP 36.6; O2SAT 99
== END 2024-01-04 14:30 | disposition home or self-care (01) ==
PROVIDERS: Physician Assistant Medical; Emergency Provider Emergency Medicine; PCP Internal Medicine
DX: J35.8 Other chronic diseases of tonsils and adenoids (principal); R09.A2 Foreign body sensation, throat; J02.9 Acute pharyngitis, unspecified
CPT/HCPCS: 36415; 70490; 84702; 99284

== ENCOUNTER 2024-01-25 13:03 | Outpatient (AMB) | payer OTHER, SELFPAY ==
[2024-01-25 13:18] VITALS: BP 100/68; PULSE 84; O2SAT 94; BMI 19.8
--- NOTE | 2024-01-25 13:18 | MHC.PC.OV ---
Vital Signs 01/25/24 13:18 Height 5 ft 4 in Weight 115 lb 6 oz BMI 19.8 BP 100/68 Blood Pressure Location Rt brachial Position Sitting Pulse 84 Pulse Source Pulse Oximeter Pulse Oximetry (%) 94 Oxygen Delivery Method Room Air Intake Visit Reasons: ER Follow Up Allergies amoxicillin Allergy (Unknown, Verified 01/25/24 13:20) hives Medication List - Last Reconciled 01/25/24 by Ryan Coelho MD omeprazole 1 cap PO QAM Tobacco use date assessed: 01/25/24 Dental Screening Dental Screen Date: 01/25/24 Did you have a dental visit in the last 12 months?: Yes Did you have a dental problem in the last 6 months where you did not have access to dental care?: No Was dental information given to patient?: Patient has dentist HPI ER Follow Up HPI Details Patient is 23-year-old female who presented to emergency room on 01/04/2024 secondary to fish bone stuck in throat for the past 2 days. Patient was treating herself at home with warm saline rinse and Listerine with no relief Patient had CT scan soft tissue neck Which showed 1 mm radiopaque density in the left side of the lower oropharyngeal region, questionable for calcification versus foreign body. After evaluation stone was dislodged after numbing the throat, and patient was sent home With a diagnosis of tonsil stone She has stopped taking quetiapine patient says that she was having hangover She was seeing a psychiatrist in getting it filled through them However still having days when she feels very anxious and having difficulty going on with her day I have sent buspirone 5 mg tablet patient may take that as needed She may double the dose if needed and take it every 8 her. Patient was advised to book a physical exam appointment [facility] Medical History Anxiety Alcohol use disorder Dysuria Vaginal discharge Family History Paternal Grandmother Breast cancer Paternal Aunt Breast cancer, Onset Age: 40 Other Mental health disorder Substance use disorder Social History Housing: House Alcohol intake: former Patient Tobacco Use Status: Former Tobacco user Quit Date: 2020 Cigarettes Per Day: 2 Years Smoked: 1 year e-Cigarette/Vaping Use: Former Use service: No Current occupational status: employed Gender identity: Female Cognitive needs: No Hearing needs: No Vision needs: No Female Reproductive History Menstrual Age of Menarche: 14 Questionnaire PHQ-9 Over the last 2 weeks, how often have you been bothered by any of the following problems? 1. Little interest or pleasure in doing things: more than half the days 2. Feeling down, depressed, or hopeless: more than half the days 3. Trouble falling or staying asleep, or sleeping too much: nearly every day 4. Feeling tired or having little energy: more than half the days 5. Poor appetite or overeating: several days 6. Feeling bad about yourself - or that you are a failure or have let yourself or your family down: several days 7. Trouble concentrating on things, such as reading the newspaper or watching television: more than half the days 8. Moving or speaking so slowly that other people could have noticed. Or the opposite - being so fidgety or restless that you have been moving around a lot more than usual: not at all 9. Thoughts that you would be better off or of hurting yourself in some way: not at all Total score: 13 Depression Screening Interpretation: Positive Depression Screening Follow-up: New Medication prescribed Depression Screening Done: Yes 87859 - PHQ-9 Billing: Yes Source: Developed by Drs. Joe Fraga, Nona Call, Jose Dubon and colleagues, with an educational tiara from [employer]. Thrive Questionnaire Date Thrive assessed: 01/25/24 I am a: Patient What is your living situation today?: I have a steady place to live Within the past 12 months, did the food you bought not last and you didn't have the money to get more?: Never true Within the past 12 months, did you worry whether your food would run out before you got money to buy more?: Never true Do you have trouble paying for medicines?: No Do you have trouble getting transportation to medical appointments?: No Do you have trouble paying your heating and electricity bill?: No Do you have trouble taking care of your child, family member or friend?: No Do you have trouble with day-to-day activities such as bathing, preparing meals, shopping, managing finances, etc.?: Yes Are you currently unemployed and looking for a job?: No Are you interested in more education?: No Please select the resources that you would like help with: None Currently or been in a relationship where the following occur: no concerns reported THRIVE Score: 0 AUDIT C Alcohol Use Questionnaire (AUDIT-C) 1. How often do you have a drink containing alcohol?: Never 3. How often do you have six or more drinks on one occasion?: Never Total Score: 0 Score Reviewed/Action Taken: Yes PEBBLES-7 AMB Questionnaire PEBBLES-7 Date PEBBLES - 7 assessed: 01/25/24 Feeling nervous, anxious, or on edge: 3 = Nearly every day Not being able to stop or control worryin = Nearly every day Worrying too much about different things: 3 = Nearly every day Trouble relaxin = More than half the days Being so restless that it is hard to sit still: 1 = Several days Becoming easily annoyed or irritable: 2 = More than half the days Feeling afraid as if something awful might happen: 0 = Not at all Total PEBBLES-7 score (0-4 normal; 5-9 mild; 10-14 moderate; 15-21 severe): 14 Source: Developed by Drs. Joe Fraga, Nona Call, Jose Dubon and colleagues, with an educational tiara from [employer]. PEBBLES-7 Assessment Billing PEBBLES-7 Assessment Tool: PEBBLES-7 Assessment 00875 Review of Systems Const Denies chills and Denies fever(s) ENT Denies epistaxis and Denies nasal discharge Card Denies chest pain Resp Denies chest congestion, Denies cough and Denies hemoptysis GI Denies diarrhea and Denies nausea Skin/Breast Denies rash Neuro Reports no additional complaints Psych Reports no additional complaints Endo Reports no additional complaints Physical exam (Primary Care) Vital Signs: Last Vital Signs Pulse 84 01/25/24 13:18 BP 100/68 01/25/24 13:18 Pulse Ox 94 01/25/24 13:18 Oxygen Delivery Method Room Air 01/25/24 13:18 BMI result Body Mass Index 19.8 Tobacco/Smoking Status: Tobacco use Status Tobacco use date assessed 01/25/24 01/25/24 13:21 Patient Tobacco Use Status Former Tobacco user 04/30/24 13:21 e-Cigarette/Vaping Use Former Use 01/25/24 13:21 PHQ-9: PHQ-9 Score PHQ-9: Total score 13 01/25/24 13:39 Depression Screening Interpretation: Positive Depression Screening Follow-up: New Medication prescribed Thrive Assessment: Date of Thrive Assessment Date Thrive assessed 01/25/24 01/25/24 13:39 Currently or been in a relationship where the following occur: no concerns reported Const General: cooperative, comfortable and no acute distress Orientation/consciousness: patient oriented x3 HENMT Other: Tonsil brothers noted without any food particles lodged Head: Yes normocephalic Eyes General: appearance normal, both eyes and all related structures Neck Neck: Yes supple Resp Effort & Inspection: normal respiratory effort, no cough and no stridor Cardio Rhythm: regular rhythm Heart sounds: S1 normal heart sound present and S2 normal heart sound present Skin General skin exam: turgor normal Neuro General: patient oriented x3, tone normal and moves all extremities Extrem Right lower extremity: no edema Left lower extremity: no edema Assessment and Plan Assessment & Plan (1) Tonsil stone: Code(s): J35.8 - Other chronic diseases of tonsils and adenoids (2) Generalized anxiety disorder with panic attacks: Code(s): F41.1 - Generalized anxiety disorder; F41.0 - Panic disorder [episodic paroxysmal anxiety] Plan Patient is 23-year-old female who presented to emergency room on 01/04/2024 secondary to fish bone stuck in throat for the past 2 days. Patient was treating herself at home with warm saline rinse and Listerine with no relief Patient had CT scan soft tissue neck Which showed 1 mm radiopaque density in the left side of the lower oropharyngeal region, questionable for calcification versus foreign body. After evaluation stone was dislodged after numbing the throat, and patient was sent home With a diagnosis of tonsil stone She has stopped taking quetiapine patient says that she was having hangover She was seeing a psychiatrist in getting it filled through them However still having days when she feels very anxious and having difficulty going on with her day I have sent buspirone 5 mg tablet patient may take that as needed She may double the dose if needed and take it every 8 her. Patient was advised to book a physical exam appointment 30 minute visit, reviewing emergency room note, [id number] with the patient, examination Discussing medications, addressing anxiety, charting, coordination of care Medications: New buspirone 5 mg PO BID 30 days 60 tabs 0RF Coding Level of Care Code Est Pt Level 4 (86516) Diagnoses Tonsil stone J35.8 Generalized anxiety disorder with panic attacks F41.1; F41.0 Additional Codes PEBBLES-7 Assessment Billing - PEBBLES-7 Assessment Tool: PEBBLES-7 Assessment 18498 ([id number])
== END 2024-01-25 14:12 | disposition home or self-care (01) ==
PROVIDERS: PCP Internal Medicine; Visit Provider Internal Medicine
DX: J35.8 Other chronic diseases of tonsils and adenoids (principal); F41.1 Generalized anxiety disorder; F41.0 Panic disorder [episodic paroxysmal anxiety]
CPT/HCPCS: 96127; 99214

== ENCOUNTER 2024-06-29 08:43 | Outpatient (AMB) | payer OTHER, SELFPAY ==
--- NOTE | 2024-06-29 08:49 | MHC.OFFVIS ---
Vital Signs 06/29/24 08:52 Height 5 ft 4 in Weight 114 lb 10.246 oz BMI 19.7 Intake Visit Reasons: Vaginitis/STD testing Precast Molder Required: No Information Interpreted: non-clinical & clinical Career Services Coordinator: Career Services Coordinator Present (Kika HAGEN) Accompanied by: Self / Same As Patient Allergies amoxicillin Allergy (Unknown, Verified 06/29/24 08:52) hives Is last menstrual period known: Yes Last menstrual period: 06/11/24 HPI Comments Details: Presenting complaining of vulvovaginal irritation and discharge associated with foul odor over the last week. The patient is interested in discussing different options of control and STD screen [facility] Medical History Anxiety Alcohol use disorder Dysuria Vaginal discharge Family History Paternal Grandmother Breast cancer Paternal Aunt Breast cancer, Onset Age: 40 Other Mental health disorder Substance use disorder Social History Housing: House Alcohol intake: former Patient Tobacco Use Status: Former Tobacco user Cigarettes Per Day: 2 Years Smoked: 1 year e-Cigarette/Vaping Use: Former Use service: No Current occupational status: employed Gender identity: Female Cognitive needs: No Hearing needs: No Vision needs: No Female Reproductive History Menstrual Age of Menarche: 14 Date of last menstrual period: 06/11/24 Review of Systems Const All systems reviewed & are unremarkable except as noted in HPI and below Physical Exam General: Yes no CVA tenderness External Female Exam: normal external appearance and normal appearance of the urethra Speculum Exam - Vagina: normal appearance of the vagina, normal palpation, no lesions and no masses Speculum Exam - Cervix: normal appearance of the cervix, normal palpation, no lesions, no masses and nontender Bimanual exam- vagina & uterus: normal bimanual exam, normal palpation, uterine size normal, normal palpation, uterine shape normal, No Cervical tenderness present and non-tender Bimanual Exam- Adnexa, other: normal adnexae Back/Spine/Pelvis Back: no CVA tenderness Assessment & Plan Assessment & Plan (1) Vulvovaginitis: Comment: VVC +BV Code(s): N76.0 - Acute vaginitis Category: Medical Plan: GC and chlamydia cultures with BV panel taken. Per CDC recommendation, will screen for STI, HepBs Ag, HIV, RPR, Hep C Ab ordered. Will treat with Terazol 0.8% q.h.s. for 3 days with Flagyl 500 mg p.o. b.i.d. x 7 days, Instructions given to the patient to refrain from sexual activity or to use condoms consistently and correctly during the BV treatment regimen, not to douch, it might increase the risk for relapse, and to call if symptoms persist or recur. (2) Screen for STD (sexually transmitted disease): Code(s): Z11.3 - Encounter for screening for infections with a predominantly sexual mode of transmission Category: Medical Plan: STD screening tests done includes: BV panel for trichomonas, GC/CT will send patient for serology std screening for HIV, RPR, Hep b s Ag, HepC Ab. Instructions given the patient to schedule a follow-up appointment for repeat serology screen in 6 months for possible false negatives. (3) Family planning: Code(s): Z30.09 - Encounter for other general counseling and advice on contraception Category: Social Hx Plan: Discussed with the patient the different options of control including control pills/Nuvaring, Depo Medroxy Progesterone Acetate, IUD ( levonorgestrel, Copper), sterilization. All the pros, cons, risks and benefits of each were discussed with the patient. The patient decided to go ahead with [facility] so a more detailed discussion re: control pills including mechanism of action, benefits (regular menses, less dysmenorrhea, less risk of ovarian cancer, ...), risks ( DVT, PE, Strokes, ND, increased breast ca, others). Instructions were given to use a back- up method for contraception x 1st 2 weeks, and to schedule a 3 months appointment for blood pressure check Orders: Orders HIV Ab/Ag Today Z20.2 - Contact with and (suspected) exposure to infections with a predominantly sexual mode of transmission Hepatitis B Surface Antigen Today Z20.2 - Contact with and (suspected) exposure to infections with a predominantly sexual mode of transmission Hepatitis C Antibody Today Z20.2 - Contact with and (suspected) exposure to infections with a predominantly sexual mode of transmission Syphilis Screen Today Z20.2 - Contact with and (suspected) exposure to infections with a predominantly sexual mode of transmission Medications: New terconazole 0.8% 1 appful vaginal BEDTIME 3 days 20 grams 0RF metronidazole 500 mg PO BID 7 days 14 tabs 0RF desogestrel-ethinyl estradiol 0.15-0.03 mg (Apri) 1 tab PO DAILY 28 days 28 tabs 2RF Coding Level of Care Code Est Pt Level 3 (12686) Diagnoses Vulvovaginitis N76.0 Screen for STD (sexually transmitted disease) Z11.3 Family planning Z30.09
[2024-06-29 08:52] VITALS: BMI 19.7
== END 2024-06-29 09:08 | disposition home or self-care (01) ==
PROVIDERS: PCP Internal Medicine; Visit Provider Obstetrics & Gynecology
DX: N76.0 Acute vaginitis (principal); Z30.09 Encounter for other general counseling and advice on contraception
CPT/HCPCS: 99213

== ENCOUNTER 2024-06-29 08:43 | Outpatient (REF) | payer OTHER, SELFPAY | END 2024-06-29 08:44 | disposition home or self-care (01) | LOC: HO.LNP 08:43 | PROVIDERS: PCP Internal Medicine; Visit Provider Obstetrics & Gynecology | DX: Z13.89 Encounter for screening for other disorder (principal) ==

== ENCOUNTER 2024-06-29 09:18 | Outpatient (REF) | payer OTHER, SELFPAY ==
[2024-06-29 10:33] LABS: Syphilis Screen Nonreactive (Nonreactive)
[2024-06-29 10:34] LABS: HBsAGNum1 0.39 S/CO (0.00-0.99); HIV AB/AG Nonreactive (Nonreactive); HIV Num 1 0.05 S/CO (0.00-0.99); Hepatitis B Surface Antigen Negative (Negative); ~HepC Num1 0.25 S/CO (0.00-0.79); ~Hepatitis C Antibody Nonreactive (Nonreactive)
[2024-06-29 15:40] LABS: CT PCR NOT DETECTED (Not Detect.); NG PCR NOT DETECTED (Not Detect.)
[2024-06-30 09:56] LABS: Bacterial Vaginosis PCR POSITIVE (Negative); Candida Group PCR NOT DETECTED (Not Detect); Candida glab krusei PCR NOT DETECTED (Not Detect); Trichomonas vaginalis PCR NOT DETECTED (Not Detect)
== END 2024-06-29 09:19 | disposition home or self-care (01) ==
LOC: HO.LAB 09:18
PROVIDERS: PCP Internal Medicine; Visit Provider Obstetrics & Gynecology
DX: Z20.2 Contact with and (suspected) exposure to infections with a predominantly sexual mode of transmission (principal); Z11.3 Encounter for screening for infections with a predominantly sexual mode of transmission; N76.0 Acute vaginitis; Z30.09 Encounter for other general counseling and advice on contraception
CPT/HCPCS: 0352U; 86780; 86803; 87340; 87389; 87491; 87591

== ENCOUNTER 2025-05-08 09:56 | Outpatient (REF) | payer OTHER, SELFPAY ==
--- OUTSIDE RECORDS SUMMARY | 2024-04-20 11:15 | XMS_ITS ---
Author Organization [facility] Address [address] [place] [phone] Care Team Providers Care Reverberatory Furnace Supervisor Name Role Phone Meliton LEWIS, Ryan Primary Care Provider Mery Hager Jr, James Bearden REASON FOR VISIT Patient presents today for medication review Encounters Encounter Location Date Provider Diagnosis [facility] [address] [facility] [address] [place] [phone] 04/20/2024 James Hager Jr Plan Of Treatment No Information Progress Notes * INGRID DE LEON NDOB: [birth year] (25 yo F)Acc No.[id number]:04/20/2024 Progress Notes Patient: INGRID RAYGOZA Provider: Razia Hager MD :2000 A ge:24 Y S ex:Female Date:04/20/2024 Address:[address] [place], [place] [phone] Pcp:Ryan Coelho MD Subjective: * Chief Complaints: * 1 . Patient presents today for medication review. * Medical History: Objective: * Vitals: Assessment: Plan: * Treatment: * * The named appointment provid er may or may not be the originator of this progress note, and it is not deemed complete until electronically signed by the appointment provider. Sign off status: Pending * Provider: Razia Hager MD Date: 04/20/2024 Generated for Printi ng/Famazing/eTransmitting on: 0 05/08/2025 10:54 AM EDT
== END 2025-05-08 09:57 | disposition home or self-care (01) ==
LOC: HO.LAB 09:56
PROVIDERS: Visit Provider Physician Assistant
DX: Z13.89 Encounter for screening for other disorder (principal)

== ENCOUNTER 2025-07-03 10:40 | Outpatient (REF) | payer OTHER, SELFPAY ==
--- OUTSIDE RECORDS SUMMARY | 2024-04-20 11:15 | XMS_ITS ---
Author Organization [facility] Address [address] [place] [phone] Care Team Providers Care Fabric Lay Out Worker Name Role Phone Meliton LEWIS, Ryan Primary Care Provider Mery Hager Jr, James Bearden REASON FOR VISIT Patient presents today for medication review Encounters Encounter Location Date Provider Diagnosis [facility] [address] [facility] [address] [place] [phone] 04/20/2024 James Hager Jr Plan Of Treatment No Information Progress Notes * INGRID DE LEON NDOB: [birth year] (25 yo F)Acc No.[id number]:04/20/2024 Progress Notes Patient: INGRID RAYGOZA Provider: Razia Hager MD :2000 A ge:24 Y S ex:Female Date:04/20/2024 Address:[address] [place], [place] [id number] Pcp:Ryan Coelho MD Subjective: * Chief Complaints: [...] MD Date: 0 04/20/2024 Generated for Printi ng/Famazing/eTransmitting on: 1 01:01 PM EDT
--- OUTSIDE RECORDS SUMMARY | 2025-07-03 13:01 | XMS_ITS | Patient Health Record ---
Author Organization [facility] Address [address] [place] [phone] Care Team Providers Care Court Usher Name Role Phone Meliton LEWIS, [facility] Primary [facility] Provider James Ruiz Jr Unavailable Allergies Allergen (clinical drug ingredient) Drug/Non Drug Allergy documented on EMR Reaction Allergy Type Onset Date Status amoxicillin Amoxicillin hives Drug Allergy Act jorge Reason For Referral No Information Medications Medication SIG (Take, Route, Frequency, Duration) Notes Start Date End Date Status QUEtiapine Fumarate 25 MG 1 tablet at be dtime Orally Once a day for 30 day(s) Active Omeprazole 40 MG 1 capsule 30 minutes before morning meal Orally Once a day for 90 days 02/26/2023 Active Immunizations Vaccine Route Administration Date Status Comme nts Influenza Unknown 02/19/2021 Refused Influenza Unknown 05/26/2021 Refused Social History Tobacco Use: Social History Observation Description Date Details (start date - stop date) Former Smoker NA - NA Tobacco Use/Smoking Question Answer Notes Patient is a former smoker Alcohol Screen Question Answer Notes Did you have a drink containing alcohol in the p ast year? No Points 0 Interpretation Negative Section Notes: She does use oral cannabis t o sleep. She does use oral cannabis t o sleep. She does use oral cannabis t o sleep. Problems Problem Type SNOMED Code ICD Code Onset Dates Problem Status W/U Status Risk Notes Problem 09624405 Epigastric pain (R10.13) Active confirmed Problem 85578739 Weight loss (R63.4) Active confirmed Problem 955805089 Elevated liver enzymes (R74.8) Active confirmed Problem 230031836 Abnormal liver enzymes (R74.8) Active confirmed Encounters Encounter Location Date Provider Diagnosis [facility] [address] [place] [address] 12/11/2024 James Hager Jr Plan Of Treatment Pending Test Test Name Order Date LIVER PROFILE 02/19/2021 LIVER PROFILE 05/21/2021 LIVER PROFILE 06/17/2022 LIPASE 06/17/2022 TSH (THYROID STIMULATING HORMONE) 2021 IRON + IBC (FE) 02/19/2021 FERRITIN 02/19/2021 CBC w DIFF 06/17/2022 MITOCHONDRIAL AB 02/19/2021 SMOOTH MUSCLE ANTIBODIES 02/19/2021 US ABD 02/19/2021 Future Test Test Name Order Date UPPER GI ENDOSCOPY 06/17/2022 COLONOSCOPY 06/17/2022 Insurance Providers Payer Name Payer Address Payer Phone Subscriber Number Group Number Insured Name Patient Relationship to Insured Coverage Start Date Coverage End Date [employer] [place] [address] [address] [place] [address] [id number] INGRID DE LEON Self - patient is the insured Medical (General) History Medical History History ICD Code substance abuse, currently in remission anxiety Epigastric pain, EGD normal 06/23/22 Colonoscopy for change in bowels normal 06/23/22 Surgical History Surgery Date(Month/Year)
== END 2025-07-03 10:41 | disposition home or self-care (01) ==
LOC: HO.LAB 10:40
PROVIDERS: PCP Internal Medicine; Visit Provider Physician Assistant
DX: Z13.89 Encounter for screening for other disorder (principal)

== ENCOUNTER 2025-09-13 09:30 | Outpatient (REF) | payer OTHER, SELFPAY ==
--- OUTSIDE RECORDS SUMMARY | 2024-04-20 10:15 | XMS_ITS ---
Author Organization [facility] Address [address] [place] [phone] Care Team Providers Care Chief Mechanical Engineer Name Role Phone Meliton LEWIS, Ryan Primary Care Provider Mery Hager Jr, James Bearden [phone] REASON FOR VISIT Patient presents today for medication review Encounters Encounter Location Date Provider Diagnosis [facility] [address] [facility] [address] [place] [phone] 04/20/2024 James Hager Jr Plan Of Treatment No Information Progress Notes * INGRID DE LEON NDOB: [birth year] (25 yo F)Acc No.[id number]:04/20/2024 Progress Notes Patient: INGRID RAYGOZA Provider: Razia Hager MD :2000 A ge:24 Y S ex:Female Date:04/20/2024 Address:[address] [place], [place] [id number] Pcp:Ryan Coelho MD Subjective: * Chief Complaints: * P atient presents today for medication review * The named appointment provid er may or may not be the originator of this progress note, and it is not deemed complete until electronically signed by the appointment provider. Sign off status: Pending * Provider: Razia Hager MD Date: 0 04/20/2024 Generated for Printi ng/Faxing/eTransmitting on: 1 11/14/2024 11:03 AM EST
[2025-09-13 11:03] LABS: MANUAL DIFF FLAG NO
--- OUTSIDE RECORDS SUMMARY | 2025-09-13 11:04 | XMS_ITS | Patient Health Record ---
Author Organization [facility] Address [address] [place] [id number] Care Team Providers Care Rn Family Practice Name Role Phone Mel[facility] Provider James Ruiz Jr Unavailable [phone] Allergies Allergen (clinical drug ingredient) Drug/Non Drug Allergy documented on EMR Reaction Allergy Type Onset Date Status amoxicillin Amoxicillin hives Drug Allergy Act jorge Reason For Referral No Information Medications Medication SIG (Take, Route, Frequency, Duration) Notes Start Date End Date Status QUEtiapine Fumarate 25 MG Tablet 1 tablet at bedtime Orally Once a day; Duration: 30 day(s) Not-Taking/P RN Active Omeprazole 40 MG Capsule Delayed Release 1 capsule 30 minutes before morning meal Orally Once a day; Duration: 90 days 02/26/2023 Not-Taking/PRN Aspirin Active Immunizations Vaccine Route Administration Date Status Comme nts Influenza Unknown 02/19/2021 Refused Influenza Unknown 05/26/2021 Refused Influenza Unknown 07/12/2025 Refused Social History Tobacco Use: Social History Observation Description Date Details (start date - stop date) Former Smoker NA - NA Social History Drugs/Alcohol: Social Info Question Answer Notes Alcohol Screen Did you have a drink containing alcohol in the past year? No Points 0 Interpretation Negative Tobacco Use: Social Info Question Answer Notes Tobacco Use/Smoking Patient is a former smoker Additional Details Category Social Info Options Details Miscellaneous: Marital status: single Occupation: [employer] Section Notes: She does use oral cannabis t o sleep. She does use oral cannabis t o sleep. She does use oral cannabis t o sleep. 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 Problem Elevated liver enzymes level (583106501) Elevated liver enzymes (R74.8) Active confirmed Problem Liver enzymes abnormal (091602184) Abnormal liver enzymes (R74.8) Active confirmed Vital Signs Temperature 98 degrees Fahrenheit 07/12/2025 Blood pressure diastolic 01 mm Hg 07/12/2025 Height 64 in 07/12/2025 Blood pressure systolic 001 mm Hg 07/12/2025 Weight 135.6 lbs 07/12/2025 BMI 23.27 kg/m2 07/12/2025 Encounters Encounter Location Date Provider Diagnosis [facility] [address] [place] [phone] 07/12/2025 James Hager Jr Epigastric pain R10.13 and Congenital malformation of retina Q14.1 [facility] [address] [place] [phone] 12/11/2024 James Hager Jr [facility] [address] [place] [phone] 07/05/2025 James Hager Jr [facility] [address] [place] [phone] 07/16/2025 James Hager Jr Assessments Encounter Date Diagnosis (ICD Code) Assessment Notes Treatment Notes Treatment Clinical Notes Section Notes 07/12/2025 Epigastric pain (ICD-10 - R10.13) We discussed Gutierres syndrome today. It seems very unlikely that she is at risk for this based on her lack of any history of colonic adenomas. 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 Her family history of colon cancer in her grandfather probably does not raise her risk much as he is not a primary family relative, therefore it seems unlikely that she would benefit from referral for genetic testing. We discussed this today. We will review her records and get back to her. Today's visit was 35 minutes and included discussion with her mother Mercedez. Her epigastric pain symptoms have resolved. She is no longer taking omeprazole. She will call if she has any problems. 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 It seems very unlikely that she is at risk for this based on her lack of any history of colonic adenomas. 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 Her family history of colon cancer in her grandfather probably does not raise her risk much as he is not a primary family relative, therefore it seems unlikely that she would benefit from referral for genetic testing. We discussed this today. We will review her records and get back to her. Today's visit was 35 minutes and included discussion with her mother Mercedez. Her epigastric pain symptoms have resolved. She is no longer taking omeprazole. She will call if she has any problems. Plan Of Treatment Pending Test Test Name Order Date LIVER PROFILE 02/19/2021 LIVER PROFILE 06/17/2022 LIVER PROFILE 05/21/2021 LIPASE 06/17/2022 TSH (THYROID STIMULATING HORMONE) 2021 [...] Coverage End Date [employer] [place] [address] [address] [place] [address] [id number] INGRID DE LEON Self - patient is the insured Medical (General) History Medical History History ICD Code substance abuse, currently in remission anxiety Epigastric pain, EGD normal 06/23/22 Colonoscopy for change in bowels normal 06/23/22 Surgical History Surgery Date(Month/Year)
[2025-09-13 11:27] LABS: Hematocrit 33.8 % (37.0-47.0); Hemoglobin 10.9 g/dl (12.0-16.0); Imm Gran Abs Auto 0.32 X10*3/uL (0.00-0.03); Imm Gran Pct Auto 2.1 % (0.0-0.4); Lymphocytes Absolute Auto 1.6 X10*3/uL (1.2-4.9); Mean Corpuscular HGB Conc 32.2 g/dl (31.0-35.0); Mean Corpuscular Hemoglobin 27.0 pg (27.0-33.0); Mean Corpuscular Volume 83.7 fL (80.0-98.0); NRBC Abs Auto 0.000 X10*3/uL (0.0-0.012); NRBC Pct Auto 0.0 /100WBC (0.0-0.2); Platelet Count 320 X10*3/uL (160-400); Red Blood Count 4.04 X10*6/uL (4.20-5.50); White Blood Count 15.3 X10*3/uL (4.8-10.8)
[2025-09-13 13:30] LABS: Glucose 1 Hour PP 50gm Dose 155 mg/dL (60-140)
[2025-09-13 13:36] LABS: Syphilis Screen Nonreactive (Nonreactive)
== END 2025-09-13 09:31 ==
LOC: HO.LAB 09:30
PROVIDERS: PCP Internal Medicine; Visit Provider Physician Assistant
DX: Z20.2 Contact with and (suspected) exposure to infections with a predominantly sexual mode of transmission (principal); Z3A.26 26 weeks gestation of pregnancy
CPT/HCPCS: 36415; 82950; 85025; 86780